=== PATIENT | male | born 1960 | race Caucasian/White ===

== ENCOUNTER 2019-06-05 16:18 | Outpatient (REF) | payer BC, SELFPAY ==
[2019-06-05 22:37] LABS: HCT 50.3 % (40.0-50.0); HGB 16.2 g/dL (13.5-17.5); Mean Corp. HGB Concentration 32.2 g/dL (32.0-36.0); Mean Corpuscular Hemoglobin 28.3 pg (27.0-33.0); Mean Corpuscular Volume 87.8 fL (80-95); Mean Platelet Volume 10.3 fL (8.0-11.0); Platelet Count 250 x1000/uL (130-400); RBC 5.73 m/cumm (4.50-6.00); RBC Distribution Width 13.6 % (11.8-14.1); White Blood Cell Count 8.29 k/cumm (4.4-10.8)
[2019-06-05 23:16] LABS: ALT 29 U/L (16-63); AST 34 U/L (15-37); Albumin 4.2 g/dL (3.4-5.0); Alkaline Phosphatase 77 U/L (46-116); Anion Gap 8.5 mmol/L (3-11); BUN 17 mg/dL (7-18); Bilirubin, Total 0.9 mg/dL (0.2-1.0); CO2 27.5 mmol/L (21.0-32.0); CREATININE 1.09 mg/dL (0.70-1.30); Calcium 9.6 mg/dL (8.5-10.1); Calculated LDL 159 mg/dL; Chloride 109 mmol/L (98-107); Cholesterol 229 mg/dL (<200); Glucose 84 mg/dL (74-106); HDL Cholesterol 33 mg/dL (40-60); Potassium 5.9 mmol/L (3.5-5.1); Sodium 145 mmol/L (136-145); Total Protein 7.5 g/dL (6.4-8.2); Triglyceride 185 mg/dL (<150)
== END 2019-06-05 16:38 ==
LOC: NCHCN 16:18
PROVIDERS: PCP Internal Medicine; Visit Provider Nurse Practitioner Community Health
DX: L71.9 Rosacea, unspecified (principal); Z79.2 Long term (current) use of antibiotics; Z83.3 Family history of diabetes mellitus; Z13.1 Encounter for screening for diabetes mellitus
CPT/HCPCS: 80053; 80061; 85027; 83036

== ENCOUNTER 2019-06-18 17:52 | Outpatient (REF) | payer BC, SELFPAY ==
[2019-06-18 22:09] LABS: BUN 17 mg/dL (7-18); CREATININE 1.01 mg/dL (0.70-1.30); Calcium 9.1 mg/dL (8.5-10.1); Chloride 105 mmol/L (98-107); Glucose 95 mg/dL (74-106); Potassium 4.1 mmol/L (3.5-5.1); Sodium 143 mmol/L (136-145); TSH (W/Ref FT4) 1.59 uIU/mL (0.36-3.74)
== END 2019-06-18 18:12 ==
LOC: NCHCN 17:52
PROVIDERS: PCP Internal Medicine; Visit Provider Nurse Practitioner Family
DX: I10 Essential (primary) hypertension (principal); I49.3 Ventricular premature depolarization
CPT/HCPCS: 80048; 83735; 84443

== ENCOUNTER 2019-07-08 19:11 | Outpatient (REF) | payer BC, SELFPAY ==
[2019-07-08 21:45] LABS: ALT 23 U/L (16-63); AST 26 U/L (15-37); Albumin 3.9 g/dL (3.4-5.0); Alkaline Phosphatase 91 U/L (46-116); Anion Gap 11.1 mmol/L (3-11); BUN 18 mg/dL (7-18); Bilirubin, Total 0.4 mg/dL (0.2-1.0); CO2 25.9 mmol/L (21.0-32.0); CREATININE 1.12 mg/dL (0.70-1.30); Calcium 9.2 mg/dL (8.5-10.1); Calculated LDL 82 mg/dL (<100); Chloride 107 mmol/L (98-107); Cholesterol 150 mg/dL (<200); Glucose 103 mg/dL (74-106); HDL Cholesterol 32 mg/dL (40-60); Potassium 4.4 mmol/L (3.5-5.1); Sodium 144 mmol/L (136-145); Triglyceride 183 mg/dL (<150)
[2019-07-10 11:43] LABS: Hepatitis C Ab w Rflx HCV PCR Negative (Negative)
== END 2019-07-08 19:31 ==
LOC: NCHCN 19:11
PROVIDERS: PCP Internal Medicine; Visit Provider Nurse Practitioner Family
DX: E78.00 Pure hypercholesterolemia, unspecified (principal); Z11.59 Encounter for screening for other viral diseases
CPT/HCPCS: 80053; 80061; 86803

== ENCOUNTER 2020-07-27 08:23 | Outpatient (REF) | payer BC, SELFPAY ==
[2020-07-27 13:27] LABS: ALT 26 U/L (16-63); AST 20 U/L (15-37); Alkaline Phosphatase 98 U/L (46-116); Anion Gap 8.1 mmol/L (3-11); BUN 17 mg/dL (7-18); Bilirubin, Total 0.6 mg/dL (0.2-1.0); CO2 26.9 mmol/L (21.0-32.0); Calcium 9.1 mg/dL (8.5-10.1); Calculated LDL 94 mg/dL (<100); Chloride 106 mmol/L (98-107); Cholesterol 144 mg/dL (<200); Glucose 124 mg/dL (74-106); HDL Cholesterol 39 mg/dL (40-60); Potassium 4.5 mmol/L (3.5-5.1); Sodium 141 mmol/L (136-145); Total Protein 7.3 g/dL (6.4-8.2); Triglyceride 55 mg/dL (<150)
== END 2020-07-27 08:24 | disposition home or self-care (01) ==
LOC: NCHCN 08:23
PROVIDERS: PCP Internal Medicine; Visit Provider Nurse Practitioner Family
DX: R73.03 Prediabetes (principal); I10 Essential (primary) hypertension; E78.00 Pure hypercholesterolemia, unspecified
CPT/HCPCS: 80053; 80061; 83036

== ENCOUNTER 2022-08-10 11:12 | Outpatient (REF) | payer BC, SELFPAY ==
[2022-08-10 16:32] LABS: Hemoglobin A1C 6.3 % (<5.7)
[2022-08-10 17:16] LABS: ALT 21 U/L (16-63); AST 23 U/L (15-37); Alkaline Phosphatase 83 U/L (46-116); Anion Gap 8.5 mmol/L (3-11); BUN 20 mg/dL (7-18); Bilirubin, Total 0.8 mg/dL (0.2-1.0); CO2 25.5 mmol/L (21.0-32.0); Calcium 9.3 mg/dL (8.5-10.1); Calculated LDL 99 mg/dL (<100); Chloride 106 mmol/L (98-107); Cholesterol 160 mg/dL (<200); Glucose 143 mg/dL (74-106); HDL Cholesterol 37 mg/dL (40-60); Potassium 4.5 mmol/L (3.5-5.1); Sodium 140 mmol/L (136-145); Total Protein 7.7 g/dL (6.4-8.2); Triglyceride 120 mg/dL (<150)
== END 2022-08-10 11:13 | disposition home or self-care (01) ==
LOC: NCHCN 11:12
PROVIDERS: PCP Internal Medicine; Visit Provider Family Medicine
DX: I10 Essential (primary) hypertension (principal); E78.00 Pure hypercholesterolemia, unspecified; R73.03 Prediabetes
CPT/HCPCS: 80053; 80061; 83036

== ENCOUNTER 2023-10-10 18:40 | Outpatient (REF) | payer BC, SELFPAY ==
[2023-10-10 21:20] LABS: Anion Gap 12.1 mmol/L (3-11); BUN 20 mg/dL (7-18); CO2 21.9 mmol/L (21.0-32.0); CREATININE 0.9 mg/dL (0.70-1.30); Calcium 9.1 mg/dL (8.5-10.1); Chloride 107 mmol/L (98-107); Estimated GFR 95.97 (mL/min/1.73m2); Glucose 93 mg/dL (74-106); Magnesium 2.1 mg/dL (1.8-2.4); Potassium 4.1 mmol/L (3.5-5.1); Sodium 141 mmol/L (136-145)
[2023-10-10 21:22] LABS: Hemoglobin A1C 5.8 % (<5.7)
[2023-10-11 18:52] LABS: PSA, Screening 0.2 ng/mL (<=4.5)
== END 2023-10-10 18:41 | disposition home or self-care (01) ==
LOC: NCHCN 18:40
PROVIDERS: PCP Internal Medicine; Visit Provider Family Medicine
DX: R73.03 Prediabetes (principal); I10 Essential (primary) hypertension; Z12.5 Encounter for screening for malignant neoplasm of prostate; E83.42 Hypomagnesemia
CPT/HCPCS: 80048; 84153; 83036; 83735

== ENCOUNTER 2025-01-23 14:34 | Outpatient (REF) | payer MEDICARE, BC, SELFPAY ==
[2025-01-23 15:09] LABS: ALT 22 U/L (16-63); AST 29 U/L (15-37); Albumin 4.1 g/dL (3.4-5.0); Alkaline Phosphatase 78 U/L (46-116); Anion Gap 10.1 mmol/L (3-11); BUN 21 mg/dL (7-18); Bilirubin, Total 1.0 mg/dL (0.2-1.0); CO2 24.9 mmol/L (21.0-32.0); Calcium 9.1 mg/dL (8.5-10.1); Calculated LDL 75 mg/dL (<100); Chloride 107 mmol/L (98-107); Cholesterol 130 mg/dL (<200); Estimated GFR 98.21 (mL/min/1.73m2); Glucose 96 mg/dL (74-106); HDL Cholesterol 39 mg/dL (>or=40); Potassium 4.8 mmol/L (3.5-5.1); Sodium 142 mmol/L (136-145); Total Protein 6.8 g/dL (6.4-8.2); Triglyceride 81 mg/dL (<150)
[2025-01-23 15:51] LABS: Glucose Negative (Negative)
[2025-01-23 16:22] LABS: COMMENT (LAB VIEW ONLY) 120.18 mg/dL; Microalb ug/mg Crea 3.2 ug/mg Cr
== END 2025-01-23 14:35 | disposition home or self-care (01) ==
LOC: NCHCN 14:34
PROVIDERS: PCP Internal Medicine; Visit Provider Nurse Practitioner Family
DX: I10 Essential (primary) hypertension (principal)
CPT/HCPCS: 80053; 80061; 81003; 82043; 82570

== ENCOUNTER → 2025-02-27 14:11 | Outpatient (BNVA) | payer MEDICARE, BC, SELFPAY | PROVIDERS: PCP Internal Medicine; Referring Provider Internal Medicine; Visit Provider Physical Therapy Assistant | DX: Z12.11 Encounter for screening for malignant neoplasm of colon (principal); Z86.0109 Personal history of other colon polyps | CPT/HCPCS: S0285 ==

== ENCOUNTER 2025-03-13 07:18 | Day surgery (SDC) | payer MEDICARE, BC, SELFPAY ==
[2025-03-13 07:38] VITALS: BP 149/88; PULSE 85; RESP 16; TEMP 36.9; O2SAT 100
--- NOTE | 2025-03-13 07:59 | W.ANESPRE ---
General Info Date of Service Date Performed: 03/13/25 Height: 5 ft 10 in Weight: 94.5 kg Body Mass Index (BMI): 29.9 Surgical Procedure: Operation Date: 03/13/25 09:05 Proposed Procedure Side Surgeon hortencia Collins MD Meds Allergies and Home Medications Allergies Allergy/AdvReac Type Severity Reaction Status Date / Time No Known Allergies Allergy Verified 03/13/25 07:35 Home Medication ?Medication ?Instructions ?Recorded aspirin 81 mg tablet 81 mg PO DAILY 02/20/25 atorvastatin 10 mg tablet (Lipitor) 10 mg PO QHS 02/20/25 cholecalciferol (vit D3) 1,000 1 tab PO DAILY 02/20/25 unit-vitamin K2 (MK4) 100 mcg tablet (K2 Plus D3) lisinopril 10 mg tablet 10 mg PO DAILY 02/20/25 bisacodyl 5 mg tablet,delayed 5 mg PO ONCE #4 tabs 02/27/25 release (Dulcolax (bisacodyl)) doxepin 3 mg tablet (Silenor) 3 mg PO QHS PRN 02/27/25 polyethylene glycol 3350 17 17 g PO ONCE #238 grams 02/27/25 gram/dose oral powder Current Visit Medications: Current Medications Generic Name Dose Route Start Last Admin Trade Name Freq PRN Reason Stop Dose Admin Ringer's Solution 1,000 mls @ 80 mls/hr 03/13/25 06:00 IV 03/13/25 23:59 INFUSION SHREYAS IV Miscellaneous Supplies 1 each 03/13/25 06:00 Iv Access IV 03/13/25 23:59 DIRECTED SHREYAS Sodium Biphosphate/Sodium Phosphate 133 ml 03/13/25 06:00 Na Phosphate Enema-Adult [address] 03/13/25 23:59 DIRECTED PRN Sodium Chloride 0 ml 03/13/25 06:00 Normal Saline Flush 10 Ml Syr IV 03/13/25 23:59 PRN PRN Sodium Chloride 0 ml 03/13/25 06:00 Normal Saline 10 Ml Vial IJ 03/13/25 23:59 DIRECTED PRN Sterile Water 0 ml 03/13/25 06:00 Water,Injection,Sterile 10 Ml Vial IJ 03/13/25 23:59 DIRECTED PRN [facility] Medical History Medical History Radiculopathy due to cervical spondylosis History of adenomatous polyp of colon Prediabetes Right lower quadrant pain Cervical radiculopathy Neck pain Spinal stenosis of cervical region Rosacea Ventricular premature complex Essential hypertension Femoral neuropathy right Insomnia Chronic pain Obesity Pure hypercholesterolemia Surgical History Surgical History Hx of colonoscopy with polypectomy Hx of arthroscopy of right knee right knee neuroma excision 06/22/01 Tobacco Smoking/Tobacco Use Status: Never Alcohol Alcohol Intake: current Alcohol intake frequency: 0-2 drinks per day Substance Use Substance use type: does not use Vital Signs and Lab Results Vital Signs Most Recent Vital Signs in EMR: Most Recent Vital Signs Temp Pulse Resp BP Pulse Ox 36.9 C 85 16 149/88 H 100 03/13/25 07:38 03/13/25 07:38 03/13/25 07:38 03/13/25 07:38 03/13/25 07:38 Anesthesia Assessment and Plan Anesthesia History Personal History: No History of Anesthesia Complications Family History: No Family History of Anesthesia Complications Exercise Tolerance Exercise Tolerance: Metabolic Equivalents>4 Pertinent Negatives Pertinent Negatives: No Symptoms of GERD, No Major Cardiovascular Symptoms or Complaints, No Major Pulmonary Symptoms or Complaints and No History of CVA/TIA Cardiac & Pulmonary Exam Cardiac Exam: Normal S1/S2 Heart Sounds Pulmonary Exam: Clear Bilateral Breath Sounds Implantable Cardiac Device Does patient have a Pacemaker or an ICD?: No Airway Exam Known Difficult Airway: No Mallampati Class: 2 Mouth Opening: Normal (> 3cm) Thyromental Distance: Greater than 3 cm Neck Range of Motion: Full ROM Neck Circumference: Normal Teeth Condition: Normal Dentition ASA Classification ASA Score: ASA 2 Emergency Case?: No NPO Status NPO Status: NPO Clears >2 hours, Solids >8 hours Anesthesia Plan Resuscitation Status: Full Code Anesthesia Technique: General Anesthesia Airway Planned: Natural Airway Monitors Used: Standard Monitors Preoperative Comments:: Prediabetic, no meds
[2025-03-13] MEDS: Lactated Ringers 1,000 ML 80 ML IV (08:02)
[2025-03-13 08:03] VITALS: BMI 29.9
--- NOTE | 2025-03-13 08:46 | W.PM.DSUDISC ---
Date of service: 03/13/25 Discharge Plan Disposition Patient Disposition: Home Condition: Stable Discharge Details Reason For Visit: Screening colonoscopy Attending Provider: Phoebe Collins Primary Care Provider: Dallas Harmon Home Meds and New Rx's Prescriptions: Continued doxepin [Silenor] 3 mg tablet 3 mg PO QHS PRN atorvastatin [Lipitor] 10 mg tablet 10 mg PO QHS lisinopril 10 mg tablet 10 mg PO DAILY aspirin 81 mg tablet 81 mg PO DAILY K2 Plus D3 1,000-100 unit-mcg tablet 1 tab PO DAILY Discontinued bisacodyl [Dulcolax (bisacodyl)] 5 mg tablet,delayed release (DR/EC) 5 mg PO ONCE Qty: 4 0RF Rx Instructions: Take per colonoscopy instructions provided by ordering providers office polyethylene glycol 3350 17 gram/dose powder 17 g PO ONCE Qty: 238 0RF Rx Instructions: Take per colonoscopy instructions provided by ordering providers office Discharge Instructions Additional Instructions: Normal colonoscopy. Zero poltps. Next screening colonoscopy will be due in 10 years. Diverticulosis of the sigmoid colon noted, no diverticulitis (infection) present. Take a daily fiber supplement and eat a high fiber diet to prevent problems and progression of diverticulosis. Activity:: Activity as Tolerated Diet:: As Tolerated Discharge Orders Discharge Orders: Discharge Order (Routine); Ordered 03/13/25 Ordered By: Phoebe Collins DS: Diagnosis Discharge Diagnosis (1) Screening for colorectal cancer: Status: Acute (2) Diverticulosis of sigmoid colon: Status: Acute
--- NOTE | 2025-03-13 08:48 | W.COLOREPORT ---
Date of service: 03/13/25 Time of Service: 09:11 Colonoscopy Report Pre-op diagnosis general: Screening for colorectal cancer Post-op diagnosis procedure note: same Procedure: Colonoscopy Surgeon: Phoebe Collins Anesthesia Type: General:No Airway Estimated blood loss (mL): 0 Pathology: none sent Complications: None Indications: screening for colorectal cancer Prep: Miralax/Dulcolax (Excellent) Procedure Description: Informed consent was obtained and the patient was taken to the procedure area. The patient was placed in left lateral decubitus position on the procedure table. Timeout was performed. Anesthesia was induced. A lubricated colonoscope was inserted through the anus and passed to the cecum. The cecum was identified by the ileocecal valve and the appendiceal orifice. The scope was then slowly withdrawn and the colonic and rectal mucosa examined. TI intubated and examined. It appears normal. There are no colon or rectal mass lesions, polyps, AVMs. There is no inflammatory change. Moderate wide mouthed sigmoid diverticulosis was seen. The scope was retroflexed in the anorectal junction examined. Uncomplicated internal hemorrhoids present. Assessment and plan: Colorectal cancer screening Diverticulosis Normal colonoscopy. Next screening colonoscopy will be due in 10 years. Diverticulosis of the sigmoid colon noted, no diverticulitis. Daily fiber supplement recommended.
[2025-03-13 09:15] VITALS: BP 115/70; PULSE 64; RESP 16; TEMP 36.2; O2SAT 97
--- NOTE | 2025-03-13 09:33 | W.ANESPOSTOP ---
Postoperative Evaluation Date, Time and Location Date Performed: 03/13/25 Time Performed: 09:15 Patient Location: Day Surgery Unit Vital Signs Most Recent Imported Vital Signs: Most Recent Vital Signs Temp Pulse Resp BP Pulse Ox 36.2 C L 64 16 115/70 97 03/13/25 09:15 03/13/25 09:15 03/13/25 09:15 03/13/25 09:15 03/13/25 09:15 Pain Score Most Recent Pain Score: Most Recent Pain Score Pain Level 0 03/13/25 09:15 Assessment Mental Status: Awake (Alert & Oriented to Patient Baseline) Airway and Respiratory Function: Patent airway with normal (patient baseline) respiratory exam Cardiovascular Function: Hemodynamically Stable Hydration Status: Adequately Hydrated Nausea & Vomiting: No Nausea or Vomiting Pain: Pt. Denies Any Pain Peripheral Nerve Block: Patient did not receive a nerve block
[2025-03-13 09:45] VITALS: BP 127/85; PULSE 59; RESP 16; TEMP 36.6; O2SAT 98
== END 2025-03-13 07:19 | disposition home or self-care (01) ==
PROVIDERS: PCP Internal Medicine; Visit Provider Surgery
PROC: 0DJD8ZZ Inspection of Lower Intestinal Tract, Via Natural or Artificial Opening Endoscopic (ICD-10-PCS; CPT 45378; principal; 2025-03-13 09:00)
DX: Z12.11 Encounter for screening for malignant neoplasm of colon (principal); Z12.12 Encounter for screening for malignant neoplasm of rectum; K57.30 Diverticulosis of large intestine without perforation or abscess without bleeding; Z86.0101 Personal history of adenomatous and serrated colon polyps; I10 Essential (primary) hypertension
CPT/HCPCS: G0105; J2704